=== PATIENT | male | born 2000 | race Caucasian/White ===

== ENCOUNTER 2022-11-04 18:23 | Emergency (ER) | payer OTHER, SELFPAY ==
[2022-11-04 18:25] VITALS: BP 145/83; PULSE 93; RESP 18; TEMP 36.6; O2SAT 98; BMI 36.3
--- NOTE | 2022-11-04 19:05 | EDS_ITS ---
HPI <RICK Epps - Last Filed: 11/04/22 19:12> History of Present Illness Chief Complaint: Head Injury <Dr. Denton Dean DO - Last Filed: 11/04/22 19:09> History of Present Illness Detail of Chief Complaint: Head injury Informant: patient Narrative Narrative: Patient present to the emerge department with complaint of a head injury that occurred about an hour ago. Patient states that he was getting into his vehicle when he bumped his head on the frame of the car door. Patient states that things Went black for about a second or so but that he did not pass out or lose consciousness. Patient states he then got into his car and drove but could not really remember how to get to where he was going and then once he got to work he did not remember how he got there. Currently he denies any significant headache. He denies visual changes. He has had no nausea or vomiting. PFSH <RICK Epps - Last Filed: 11/04/22 19:12> [facility] Medical History no medical history Allergy/AdvReac Type Severity Reaction Status Date / Time No Known Allergies Allergy Verified 11/04/22 18:24 Social History Smoking Status: Never smoker ROS <RICK Epps - Last Filed: 11/04/22 19:12> ROS ED ROS Narrative Constitutional: Negative for fever, chills, weight loss, weakness Eyes: Negative for vision loss, vision change, double vision ENT: Negative for any sore throat, ear pain, congestion Cardiovascular: Negative for any chest pain, tightness, palpitations Respiratory: Negative for any cough, sputum production, hemoptysis, dyspnea, dyspnea on exertion, orthopnea Gastrointestinal: Negative for any abdominal pain, nausea, vomiting, diarrhea, constipation, blood in stool, blood in vomit : Negative for any urinary frequency, dysuria, retention, blood in urine Muscle skeletal: Negative for any muscle joint pain, stiffness, myalgias, arthralgias, neck pain, back pain Neurological: Negative for any syncope, numbness or tingling, dizziness. Positive intermittent headache Skin: Negative for any rashes, lumps, itching, abrasions, lacerations. Positive hematoma, right parietal area Psychiatric: Negative for any depression, anxiety, stress, suicidal ideation, homicidal ideation Hematologic: Negative for any easy bruising, excessive bruising, easy bleeding Allergies: Negative for any eczema, hives, rash <Dr. Denton Dean DO - Last Filed: 11/04/22 19:09> ROS ED ROS Narrative Head injury Review of Systems ROS Unobtainable: other Constitutional Constitutional ED: Reports lethargy; Denies chills, fever(s), sweats or weight loss Eyes Eyes: Denies blurry vision, change in vision or diplopia ENT ENT ED: Denies rhinorrhea or sore throat Cardiovascular Cardiovascular: Denies chest pain, orthopnea or racing heartbeat Respiratory/Chest Respiratory/Chest: Denies cough, dyspnea, dyspnea on exertion, orthopnea or sputum Gastrointestinal Gastrointestinal: Denies abdominal pain, diarrhea, nausea or vomiting Genitourinary Genitourinary ED: Denies dysuria, hematuria or urinary frequency Musculoskeletal Musculoskeletal: Denies arthralgias, back pain, myalgias or neck pain Integumentary Denies abscess, Abrasions or rash Neurologic Neurologic: Reports headache(s); Denies weakness Psychiatric Psychiatric: Denies anxiety, depression or suicidal thoughts Endocrine Endocrinology: Denies polydipsia, polyphagia or polyuria Hematologic/Lymphatic Hematologic/Lymphatic: Denies easy bleeding, easy bruising or lymphadenopathy Allergic/Immunologic Allergic/Immunologic ED: Denies mouth swelling, tongue swelling or urticaria EXAM <RICK Epps - Last Filed: 11/04/22 19:12> Physical Exam Narrative Exam Narrative: Vital signs reviewed. Patient alert and orient x4, acting appropriate. HEET: Head normocephalic atraumatic, TMs clear bilaterally. Posterior pharynx is clear, moist mucous membranes. Nares clear bilaterally. Pupils are equal round reactive to light, negative for any hemotympanum, negative for any septal hematoma. Patient is have a hematoma to the right parietal area however he has no pain over the alevism. Neck: Supple with no lymphadenopathy or tenderness. No signs of meningismus, negative jolt sign. Cardiac: Regular rate and rhythm no murmurs gallops or rubs, equal peripheral pulses bilaterally. Respiratory: Lungs clear to auscultation bilaterally. No chest tenderness. Abdomen: Soft, nontender, nondistended. No abdominal bruit or pulsatile masses. No hepatosplenomegaly Extremities: No peripheral edema, no signs of gross trauma or deformity. Active full range of motion of all extremities. Neuro: Cranial nerves II through XII intact, no focal neurological deficits. Skin: Clean dry and intact with no rash, purpura, petechiae, vesicles or pustules. Backs/flank: No CVA tenderness, no midline spinal tenderness, no deformity. Psych: Normal mood and affect. No SI, HI or acute psychosis. Const Vital Signs: 11/04/22 18:25 11/04/22 18:30 Temperature 97.9 F Temperature Source Temporal Pulse Rate 93 Respiratory Rate 18 Respiratory Effort Normal Non-Labored Respiratory Depth Normal Respiratory Pattern Normal Blood Pressure 145/83 H Blood Pressure Mean 103 Pulse Ox 98 Oxygen Delivery Method Room Air Room Air <Dr. Denton Dean, DO - Last Filed: 11/04/22 19:09> Physical Exam Const Vital Signs: 11/04/22 18:25 11/04/22 18:30 Temperature 97.9 F Temperature Source Temporal Pulse Rate 93 Respiratory Rate 18 Respiratory Effort Normal Non-Labored Respiratory Depth Normal Respiratory Pattern Normal Blood Pressure 145/83 H Blood Pressure Mean 103 Pulse Ox 98 Oxygen Delivery Method Room Air Room Air Positive well nourished and well developed General Appearance ED: well developed and NAD HEENT Reports TM's clear and moist mucous membranes HEENT Narrative: Patient has a small 3 cm hematoma over the right parietal scalp. No bony depressions noted. No lacerations noted. No hemotympanum on exam. normocephalic; Negative for trauma or tenderness Tympanic Membrane ED: Yes TM's clear Eyes PERRL and EOMs intact bilaterally General Eye ED: Negative for pale conjunctiva or scleral icterus Neck no lymphadenopathy, supple and no JVD General: Negative for tenderness Chest Wall inspection of chest normal and palpation of chest normal Chest: Negative for tenderness Resp normal respiratory effort and clear to auscultation bilaterally Effort and Inspection: Negative for respiratory distress or pain with movement Auscultation: Negative for rhonchi, wheezes or diminished lung sounds Cardio regular rate, regular rhythm, S1 normal heart sound, S2 normal heart sound and no murmurs Peripheral Pulses: pulses 2+ throughout GI normal to inspection, nondistended, normoactive bowel sounds, soft to palpation, non-tender, non-distended and no masses Back/Spine no CVA tenderness and no thoracic nor lumbar tenderness Extremity normal to inspection General Extremety ED: Negative for edema General Extremity: Negative for edema Neuro oriented x3, CN's II-XII intact bilaterally, no sensory deficits noted and gait normal Neuro Narrative: Finger-nose and heel reinoso testing within normal limits, negative Romberg, negative for drift, fundi benign. Sensorium / Orientation: awake, alert, oriented to person, oriented to place and oriented to time Motor Exam: strength 5/5 throughout and strength abnormal Psych mental status grossly normal Skin no rashes or lesions noted and no wounds [facility] <RICK Epps - Last Filed: 11/04/22 19:12> [facility] Treatment and Re-Evaluation Narrative: Patient appears generally well, patient appears nontoxic, vital signs are stable. Patient presents to the emergency department after sustaining a minor head injury earlier today. Patient's was examination was grossly unremarkable. Patient was experiencing some concussion symptoms earlier in the day however they have since ceased. Patient is in no obvious distress. Consider CT scan of th brain however according to [place] [facility] rules, patient does not qualify. He is also is asymptomatic at this time. He will continue take ibuprofen, Tylenol. He will have a work note for tonight. He was given concussion protocol education. Patient stable for discharge <Dr. Denton Dean DO - Last Filed: 11/04/22 19:09> [facility] Narrative Medical decision making narrative: Patient presents with head injury. There is concern for concussion. Clinically he looks well. Patient does not meet criteria for imaging. He and his father are comfortable with plan of discharge to home. They are advised to return if worsening headache, vomiting, difficulty with balance or speech, or condition should worsen anyway. Feel patient likely has a mild concussion. Advised to follow-up with his primary care physician within next 3 to 5 days. He is to use ice to the area. He is to use ibuprofen or Tylenol for any discomfort. Discharge Plan Triage Chief Complaint: Head Injury ED Midlevel Provider: Mahad Do ED Provider: Denton Dean Dx/Rx/DC Orders Clinical Impression: Concussion, Closed head injury Instructions: ED Concussion, ED Head Injury (Adult) Stand Alone Forms: ED Work / School Excuse Primary Care Provider: [facility] Doctor,Out of Referrals: [facility] Doctor,Out of [Primary Care Provider] - 3-5 Days Disposition Disposition: Home, Self Care
[2022-11-04 19:22] VITALS: PULSE 70; RESP 15; O2SAT 98
== END 2022-11-04 19:23 | disposition home or self-care (01) ==
LOC: ED 19:21
PROVIDERS: Emergency Provider Emergency Medicine; Visit Provider Emergency Medicine
DX: S06.0X0A Concussion without loss of consciousness, initial encounter (principal); W22.09XA Striking against other stationary object, initial encounter
CPT/HCPCS: 99282